=== PATIENT | male | born 1990 | race Caucasian/White ===

== ENCOUNTER 2018-11-04 07:09 | Emergency (ER) | payer OTHER ==
[2018-11-04 07:47] VITALS: BP 110/69; PULSE 91; TEMP 97.5; BMI 23.7
[2018-11-04] MEDS ORDERED: IBUPROFEN 600 MG TABLET (FP) PO ONE ×2 (08:33→08:57)
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
== END 2018-11-04 10:14 | disposition home or self-care (01) ==
LOC: JER 07:09
DX: S53.492A Other sprain of left elbow, initial encounter (principal); S83.8X1A Sprain of other specified parts of right knee, initial encounter; Y35.811A Legal intervention involving manhandling, law enforcement official injured, initial encounter; Y93.89 Activity, other specified; Y92.89 Other specified places as the place of occurrence of the external cause; Y99.0 Civilian activity done for income or pay
CPT/HCPCS: 73030-TC-LT-FY; 73070-TC-LT-FY; 73562-TC-RT-FY; 99281-25

== ENCOUNTER 2019-01-19 03:05 | Emergency (ER) | payer OTHER ==
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
[2019-01-19 03:42] VITALS: BP 107/79; PULSE 82; TEMP 98.2; BMI 24.4
[2019-01-19] MEDS ORDERED: BACITRACIN 0.9 GM PACKET ONE (03:43)
[2019-01-19] MEDS ORDERED: BACITRACIN 15 GM TUBE TOPICAL OINTMENT TP ONE (04:02)
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
== END 2019-01-19 04:18 | disposition home or self-care (01) ==
LOC: JER 03:05
DX: S80.211A Abrasion, right knee, initial encounter (principal); S60.511A Abrasion of right hand, initial encounter; E03.9 Hypothyroidism, unspecified; Y35.891A Legal intervention involving other specified means, law enforcement official injured, initial encounter; Y93.89 Activity, other specified; Y92.89 Other specified places as the place of occurrence of the external cause; Y99.0 Civilian activity done for income or pay
CPT/HCPCS: 99282-25

== ENCOUNTER 2019-02-01 00:17 | Emergency (ER) | payer OTHER ==
[2019-02-01 00:53] VITALS: BP 111/74; PULSE 89; TEMP 97.6; BMI 23.7
[2019-02-01] MEDS ORDERED: IBUPROFEN 400 MG TABLET (FP) PO ONE ×2 (02:01→02:05)
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
== END 2019-02-01 02:10 | disposition home or self-care (01) ==
LOC: JER 00:17
DX: S09.90XA Unspecified injury of head, initial encounter (principal); W50.0XXA Accidental hit or strike by another person, initial encounter; Y93.89 Activity, other specified; Y92.89 Other specified places as the place of occurrence of the external cause; Y99.0 Civilian activity done for income or pay; E03.9 Hypothyroidism, unspecified
CPT/HCPCS: 99281-25

== ENCOUNTER 2019-02-23 05:18 | Emergency (ER) | payer OTHER | END 2019-02-23 07:54 | disposition home or self-care (01) | LOC: JER 05:18 ==

== ENCOUNTER 2019-02-24 09:15 | Emergency (ER) | payer OTHER | END 2019-02-24 09:55 | disposition home or self-care (01) | LOC: JERFT 09:15 ==

== ENCOUNTER 2019-09-17 04:06 | Emergency (ER) | payer OTHER ==
[2019-09-17 04:25] VITALS: BMI 24.4
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
[2019-09-17] MEDS ORDERED: RALTEGRAVIR POTASSIUM 400 MG TAB PO ONE (05:20)
[2019-09-17] MEDS ORDERED: EMTRICITABINE 200MG/TENOFOVIR 300MG PO ONE (05:20)
[2019-09-17 06:14] VITALS: BP 121/80; PULSE 108; TEMP 98.2
== END 2019-09-17 06:20 | disposition home or self-care (01) ==
LOC: JER 04:06
DX: Z77.21 Contact with and (suspected) exposure to potentially hazardous body fluids (principal); Y35.891A Legal intervention involving other specified means, law enforcement official injured, initial encounter; Y93.89 Activity, other specified; Y92.414 Local residential or business street as the place of occurrence of the external cause; Y99.0 Civilian activity done for income or pay
CPT/HCPCS: 36415; 86317; 86704; 86706; 86803; 87340; 87389; 99283-25

== ENCOUNTER 2019-09-19 00:01 | Emergency (ER) | payer OTHER ==
[2019-09-19 00:09] VITALS: BP 133/90; PULSE 94; TEMP 98.1; BMI 24.4
--- NOTE | 2019-09-19 00:27 | PDOC ---
*Physical Exam - Vital Signs Last Vital Signs Temp Pulse Resp BP Pulse Ox 98.1 F 94 H 18 133/90 99 09/19/19 00:05 09/19/19 00:05 09/19/19 00:05 09/19/19 00:05 09/19/19 00:05 ED Treatment Course - LABORATORY CBC & Chemistry Diagram: 09/19/19 00:52 09/19/19 00:52 Medical Decision Making - Medical Decision Making 09/19/19 00:27 Patient seen by the advanced practice provider under my supervision. Ancillary testing reviewed as necessary. I agree with plan as outlined by the advanced practice provider. Discharge - Discharge Information Problems reviewed: Yes Clinical Impression/Diagnosis: Exposure to blood or body fluid Disposition: HOME - Follow up/Referral - Patient Discharge Instructions Patient Printed Discharge Instructions: How to Handle Body Fluid Exposure -- Non-Healthcare Worker (At Home, [facility] - Post Discharge Activity Work/Back to School Note: Back to Work
[2019-09-19] MEDS ORDERED: HIV POST EXPOSURE PROPHYLAXIS KIT NR ONE (00:34)
--- NOTE | 2019-09-19 00:37 | PDOC ---
Post Exposure HPI - General Chief Complaint: Blood/Body Fluid Exposure SJR Stated Complaint: BLOOD EXPOSURE ([employer]) Time Seen by Provider: 09/19/19 00:25 History Source: Patient - History of Present Illness Initial Comments: 09/19/19 00:34 29 year old [employer] male seen in this ER two days ago , opted not to do PEP after exposure to blood in mouth . patient partial labs drawn at the time. patient is here for PEP. patient is unable to get source patient tested 09/19/19 02:50 Past History - Past Medical History Allergies/Adverse Reactions: Allergies Allergy/AdvReac Type Severity Reaction Status Date / Time No Known Allergies Allergy Verified 09/19/19 00:09 Home Medications: Ambulatory Orders Levothyroxine Sodium [Synthroid] 200 mcg PO HS 11/04/18 Cyclobenzaprine HCl [Flexeril -] 10 mg PO HS #10 tablet 02/24/19 Ibuprofen 800 mg PO TID #30 tablet 02/24/19 COPD: No Seizures: No Thyroid Disease: Yes (HYPOTHYROID) - Immunization History TDAP Vaccination: Yes Immunization Up to Date: Yes - Psycho Social/Smoking Cessation Hx Smoking History: Never smoked Have you smoked in the past 12 months: No Hx Alcohol Use: No Drug/Substance Use Hx: No *Physical Exam - Vital Signs Last Vital Signs Temp Pulse Resp BP Pulse Ox 98.1 F 94 H 18 133/90 99 09/19/19 00:05 09/19/19 00:05 09/19/19 00:05 09/19/19 00:05 09/19/19 00:05 - Physical Exam General Appearance: Yes: Appropriately Dressed Respiratory/Chest: positive: Lungs Clear, Normal Breath Sounds Neurologic: positive: Fully Oriented, Alert ED Progress Note - Progress Note Progress Note: 09/19/19 02:44 A: blood / body fluid exposure P: labs PEP source patient unknown history with high risk behaviors Discharge - Discharge Information Problems reviewed: Yes Clinical Impression/Diagnosis: Exposure to blood or body fluid Disposition: HOME - Follow up/Referral - Patient Discharge Instructions Patient Printed Discharge Instructions: How to Handle Body Fluid Exposure -- Non-Healthcare Worker (At Home, [facility] - Post Discharge Activity Work/Back to School Note: Back to Work
[2019-09-19 01:01] LABS: BASO % 1.3 % (0-2.0); EOS % 8.2 % (0-4.5); HEMATOCRIT 41.3 % (35.4-49); HEMOGLOBIN 13.6 GM/dL (11.7-16.9); MCH 27.4 pg (25.7-33.7); MEAN CELL VOLUME 83.2 fl (80-96); MEAN PLT VOLUME 7.1 fl (7.5-11.1); MONO % 14.8 % (3.8-10.2); NEUT % 42.7 % (42.8-82.8); PLATELET COUNT 243 K/MM3 (134-434); RBC 4.97 M/mm3 (4.00-5.60); RDW 13.7 % (11.9-15.9); WHITE BLOOD COUNT 4.3 K/mm3 (4.0-10.0)
[2019-09-19 01:22] LABS: PHOSPHOROUS 3.4 mg/dL (2.5-4.9); URIC ACID 5.6 mg/dL (2.6-7.2)
[2019-09-19 01:24] LABS: ALBUMIN 4.2 g/dl (3.4-5.0); BILIRUBIN,TOTAL 0.1 mg/dL (0.2-1); BLOOD UREA NITROGEN 13.8 mg/dL (7-18); CALCIUM 8.9 mg/dL (8.5-10.1); POTASSIUM 3.9 mmol/L (3.5-5.1)
[2019-09-19] MEDS ORDERED: HIV POST EXPOSURE PROPHYLAXIS KIT PO ONE (01:26)
== END 2019-09-19 01:05 | disposition home or self-care (01) ==
LOC: JER 00:01
DX: Z77.21 Contact with and (suspected) exposure to potentially hazardous body fluids (principal)
CPT/HCPCS: 36415; 80053; 82465; 82977; 83615; 84100; 84478; 84550; 85025; 99283-25

== ENCOUNTER 2020-02-16 01:37 | Emergency (ER) | payer OTHER ==
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
[2020-02-16] MEDS ORDERED: DIPHTH,PERTUSS(ACELL),TET 0.5 ML DISP.SYRIN IM ONE ×2 (01:52→02:02)
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
[2020-02-16] MEDS ORDERED: ACETAMINOPHEN 500 MG TABLET (FP) PO ONE (02:00)
[2020-02-16 02:16] VITALS: BP 131/84; PULSE 96; TEMP 98.1; BMI 25.0
[2020-02-16] MEDS ORDERED: ACETAMINOPHEN 325 MG TABLET (FP) ONE (02:22)
== END 2020-02-16 02:26 | disposition home or self-care (01) ==
LOC: JER 01:37
PROC: 3E0234Z Introduction of Serum, Toxoid and Vaccine into Muscle, Percutaneous Approach (ICD-10-PCS; principal; 2020-02-16)
DX: S40.811A Abrasion of right upper arm, initial encounter (principal)
CPT/HCPCS: 73070-TC-RT-FY; 73130-TC-RT-FY; 90715; 99284-25

== ENCOUNTER 2020-04-25 08:45 | Emergency (ER) | payer OTHER ==
[2020-04-25 09:05] VITALS: BP 113/78; PULSE 87; TEMP 98.7; BMI 24.7
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
--- OUTSIDE RECORDS SUMMARY | 2020-04-25 09:19 | XMS ---
:1990 Author Organization [facility] Support Name Relationship Address Phone [facility] [place] [employer] Unavailable [address] [facility] [place] [address] KAUR, ALEX [address] [place] [address] [employer] Unavailable [address] [facility] [place] [address] [place] Unavailable [facility] [place] [address] VINCENT, ALEX Spouse [address] [place] [address] Re-disclosure Warning The records that you are about to access may contain information from federally- assisted alcohol or drug abuse programs. If such information is present, then the following federally mandated warning applies: This information has been disclosed to you from records protected by federal confidentiality rules (42 CFR part 2). The federal rules prohibit you from making any further disclosure of this information unless further disclosure is expressly permitted by the written consent of the person to whom it pertains or as otherwise permitted by 42 CFR part 2. A general authorization for the release of medical or other information is NOT sufficient for this purpose. The Federal rules restrict any use of the information to criminally investigate or prosecute any alcohol or drug abuse patient.The records that you are about to access may contain highly sensitive health information, the redisclosure of which is protected by Article 27-F of the [facility] Public Health law. If you continue you may haveaccess to information: Regarding HIV / AIDS; Provided by facilities licensed or operated by the [facility] Office of Mental Health; or Provided by the [facility] Office for People With Developmental Disabilities. If such information is present, then the following [facility] mandated warning applies: This information has been disclosed to you from confidential records which are protected by state law. State law prohibits you from making any further disclosure of this information without the specific written consent of the person to whom it pertains, or as otherwise permitted by law. Any unauthorized further disclosure in violation of state law may result in a fine or long term sentence or both. A general authorization for the release of medical or other information is NOT sufficient authorization for further disclosure. Insurance Providers Payer name Policy type Policy ID Covered Covered green party's Policy P yovana / Coverage green party ID relationship to [employer] Inf ormation type goodman PMA Management [id number] SP [id number] [place] P[employer] Management [id number] SP [id number] Dontae POMCO RISK [id number] SP [id number] [facility] [id number] SP [id number] [place] [employer].CONT.[employer] SELF PAY INSURANCE
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
[2020-04-25] MEDS ORDERED: IBUPROFEN 400 MG TABLET (FP) PO ONE ×2 (10:21→10:22)
--- NOTE | 2020-04-26 16:14 | EKG ---
Test Reason : Blood Pressure : / mmHG Vent. Rate : 079 BPM Atrial Rate : 079 BPM P-R Int : 178 ms QRS Dur : 092 ms QT Int : 370 ms P-R-T Axes : 008 058 016 degrees QTc Int : 424 ms NORMAL SINUS RHYTHM NORMAL ECG WHEN COMPARED WITH ECG OF 24-JAN-2018 14:30, NO SIGNIFICANT CHANGE WAS FOUND Confirmed by MD Hernandez, Pramod ([id number]) on 04/26/2020 4:13:39 PM Referred By: CHIKI ROMERO Confirmed By:Pramod Ng MD
== END 2020-04-25 10:25 | disposition home or self-care (01) ==
LOC: FER 08:45
DX: R00.2 Palpitations (principal); T23.201A Burn of second degree of right hand, unspecified site, initial encounter; T59.811A Toxic effect of smoke, accidental (unintentional), initial encounter
CPT/HCPCS: 93005; 99284-25

== ENCOUNTER 2021-05-25 22:39 | Emergency (ER) | payer OTHER, SELFPAY ==
[2021-05-25 22:48] VITALS: BP 121/85; PULSE 90; TEMP 98.3; BMI 25.0
[2021-05-25] MEDS ORDERED: IBUPROFEN 600 MG TABLET (FP) PO ONE ×2 (23:36→23:37)
== END 2021-05-25 23:39 | disposition home or self-care (01) ==
LOC: FER 22:39
DX: S92.331A Displaced fracture of third metatarsal bone, right foot, initial encounter for closed fracture (principal); W01.0XXA Fall on same level from slipping, tripping and stumbling without subsequent striking against object, initial encounter
CPT/HCPCS: 73630-TC-RT-FY; 99283-25

== ENCOUNTER 2021-08-07 15:30 | Emergency (ER) | payer OTHER ==
[2021-08-07 16:56] VITALS: BP 115/78; PULSE 100; TEMP 97.9; BMI 25.0
== END 2021-08-07 18:24 | disposition home or self-care (01) ==
LOC: FER 15:30
DX: S92.354G Nondisplaced fracture of fifth metatarsal bone, right foot, subsequent encounter for fracture with delayed healing (principal)
CPT/HCPCS: 73630-TC-RT-FY; 99284-25

== ENCOUNTER 2021-08-20 13:09 | Emergency (ER) | payer OTHER ==
[2021-08-20 13:21] VITALS: BP 124/79; PULSE 104; TEMP 99.3; BMI 25.0
[2021-08-20] MEDS ORDERED: ACETAMINOPHEN 325 MG TABLET (FP) PO ONE (13:23)
[2021-08-20] MEDS ORDERED: ACETAMINOPHEN 325 MG TABLET (FP) ONE (13:25)
== END 2021-08-20 13:35 | disposition home or self-care (01) ==
LOC: FER 13:09
DX: S80.02XA Contusion of left knee, initial encounter (principal); Y35.891A Legal intervention involving other specified means, law enforcement official injured, initial encounter
CPT/HCPCS: 99283-25

== ENCOUNTER 2022-01-24 22:30 | Emergency (ER) | payer OTHER ==
[2022-01-24 22:45] VITALS: BP 115/83; PULSE 90; TEMP 98.4; BMI 25.0
== END 2022-01-24 23:01 | disposition home or self-care (01) ==
LOC: FER 22:30
DX: S63.502A Unspecified sprain of left wrist, initial encounter (principal); S80.01XA Contusion of right knee, initial encounter; S80.02XA Contusion of left knee, initial encounter; Y35.811A Legal intervention involving manhandling, law enforcement official injured, initial encounter
CPT/HCPCS: 99281-25

== ENCOUNTER 2022-09-12 15:32 | Emergency (ER) | payer OTHER ==
[2022-09-12 15:49] VITALS: BP 117/72; PULSE 108; RESP 18; TEMP 98.3; BMI 25.0
[2022-09-12] MEDS ORDERED: IBUPROFEN 400 MG TABLET (FP) PO ONE ×2 (15:56→15:57)
== END 2022-09-12 16:00 | disposition home or self-care (01) ==
LOC: FER 15:32
DX: M25.562 Pain in left knee (principal); M25.561 Pain in right knee; M54.50 Low back pain, unspecified; M79.642 Pain in left hand
CPT/HCPCS: 99283-25

== ENCOUNTER 2022-09-17 12:10 | Emergency (ER) | payer OTHER ==
[2022-09-17 12:39] VITALS: BP 107/75; PULSE 76; RESP 16; TEMP 98.7; BMI 25.0
== END 2022-09-17 13:04 | disposition home or self-care (01) ==
LOC: FER 12:10
DX: S20.311A Abrasion of right front wall of thorax, initial encounter (principal); M54.50 Low back pain, unspecified; W55.03XA Scratched by cat, initial encounter; Y35.891A Legal intervention involving other specified means, law enforcement official injured, initial encounter
CPT/HCPCS: 99281-25

== ENCOUNTER 2022-11-18 11:57 | Emergency (ER) | payer OTHER ==
[2022-11-18 12:09] VITALS: BP 120/71; PULSE 91; RESP 18; TEMP 98.8; BMI 23.7
[2022-11-18] MEDS ORDERED: IBUPROFEN 400 MG TABLET (FP) PO ONE ×2 (12:17→12:31)
== END 2022-11-18 13:26 | disposition home or self-care (01) ==
LOC: FER 11:57
DX: S60.512A Abrasion of left hand, initial encounter (principal); S50.312A Abrasion of left elbow, initial encounter; S50.311A Abrasion of right elbow, initial encounter; Y04.2XXA Assault by strike against or bumped into by another person, initial encounter; Y99.0 Civilian activity done for income or pay
CPT/HCPCS: 99282-25

== ENCOUNTER 2023-05-24 16:38 | Emergency (ER) | payer OTHER ==
[2023-05-24 16:49] VITALS: BP 103/69; PULSE 90; RESP 18; TEMP 99.2; BMI 24.4
[2023-05-24] MEDS ORDERED: NAPROXEN 500 MG TABLET PO ONE (17:15)
[2023-05-24] MEDS ORDERED: NAPROXEN 500 MG TABLET ONE (17:22)
== END 2023-05-24 18:20 | disposition home or self-care (01) ==
LOC: FER 16:38
DX: M25.512 Pain in left shoulder (principal); M25.561 Pain in right knee; M54.50 Low back pain, unspecified; W18.30XA Fall on same level, unspecified, initial encounter
CPT/HCPCS: 73030-TC-LT-FY; 99283-25

== ENCOUNTER 2023-08-18 14:42 | Emergency (ER) | payer OTHER ==
[2023-08-18] MEDS ORDERED: IBUPROFEN 600 MG TABLET (FP) PO ONE ×2 (15:14→15:59)
[2023-08-18 15:16] VITALS: BP 132/80; PULSE 109; RESP 16; TEMP 99.8; BMI 24.4
== END 2023-08-18 16:16 | disposition home or self-care (01) ==
LOC: FER 14:42
DX: M25.561 Pain in right knee (principal); M25.521 Pain in right elbow; M25.531 Pain in right wrist; M71.5 Other bursitis, not elsewhere classified; M70.31 Other bursitis of elbow, right elbow; M70.51 Other bursitis of knee, right knee
CPT/HCPCS: 73070-TC-RT-FY; 73110-TC-RT-FY; 73130-TC-RT-FY; 73562-TC-RT-FY; 99284-25

== ENCOUNTER 2023-10-21 13:56 | Emergency (ER) | payer OTHER ==
[2023-10-21 14:06] VITALS: BP 119/78; PULSE 99; RESP 18; TEMP 98; BMI 24.4
[2023-10-21] MEDS ORDERED: METHOCARBAMOL 500 MG TABLET ONE (15:08)
[2023-10-21] MEDS: METHOCARBAMOL 750 MG TABLET PO ONE (15:10)
== END 2023-10-21 15:15 | disposition home or self-care (01) ==
LOC: FER 13:56
DX: S40.012A Contusion of left shoulder, initial encounter (principal); S60.512A Abrasion of left hand, initial encounter; Y04.8XXA Assault by other bodily force, initial encounter
CPT/HCPCS: 73030-TC-LT-FY; 99283-25